=== PATIENT | male | born 1960 | race Caucasian/White ===

== ENCOUNTER 2017-11-28 08:56 | Day surgery (SDC) | payer MEDICARE, BC, OTHER ==
[2017-11-28] MEDS ORDERED: LIDOCAINE 2% (SDV) 5 ML INJ (10:31)
[2017-11-28] MEDS ORDERED: PROPOFOL 40 ML (10:31)
== END 2017-11-28 12:30 | disposition home or self-care (01) ==
LOC: GIL 08:56
DX: K29.70 Gastritis, unspecified, without bleeding (principal)
CPT/HCPCS: 43239; 87081